=== PATIENT | male | born 1930 | race African-American/Black ===

== ENCOUNTER 2019-12-24 00:03 | Inpatient (IN) | payer MEDICARE ==
[~2019-12-24] VITALS: Ht 175.3 cm; Wt 73.5 kg
[2019-12-24 00:40] LABS: BASOPHILS # (AUTO) 0.1 K/uL (0.0-8.0); BASOPHILS % (AUTO) 1.4 % (0.0-2.0); EOSINOPHILS # (AUTO) 0.3 K/uL (0.0-0.7); EOSINOPHILS % (AUTO) 7.2 % (0.0-7.0); HEMATOCRIT 40.4 % (36.7-47.1); HEMOGLOBIN 13.8 g/dL (12.5-16.3); LYMPHOCYTES # (AUTO) 1.2 K/uL (20.0-40.0); LYMPHOCYTES % (AUTO) 25.7 % (20.5-51.5); MEAN CORPUSCULAR HEMOGLOBIN 33.7 uug (23.8-33.4); MEAN CORPUSCULAR HGB CONC 34 g/dL (32.5-36.3); MEAN CORPUSCULAR VOLUME 98.9 fL (73.0-96.2); MONOCYTES # (AUTO) 0.5 K/uL (2.0-10.0); MONOCYTES % (AUTO) 10.8 % (0.0-11.0); NEUTROPHILS # (AUTO) 2.6 K/uL (1.8-8.9); NEUTROPHILS % (AUTO) 54.9 % (38.5-71.5); PLATELET COUNT (AUTO) 198 K/uL (152-348); RED BLOOD CELL COUNT(AUTO) 4.09 MIL/uL (4.06-5.63); WHITE BLOOD COUNT (AUTO) 4.8 K/uL (3.6-10.2)
[2019-12-24 00:58] LABS: CARBON DIOXIDE 31 mmol/L (21-32); CHLORIDE 109 mmol/L (98-107); CREATININE 1.4 mg/dL (0.6-1.3); ETHANOL < 3 MG/DL (0-0); GLUCOSE 103 mg/dL (74-106); POTASSIUM 4.2 mmol/L (3.5-5.1); UREA NITROGEN, BLOOD 17 mg/dL (7-18)
[2019-12-24 01:04] LABS: ACETAMINOPHEN 6.1 ug/mL (10-30); ALANINE AMINOTRANSFERASE 24 U/L (16-63); ALKALINE PHOSPHATASE 49 U/L (50-136); ASPARTATE AMINOTRANSFERASE 15 U/L (15-37); BILIRUBIN,DIRECT 0.2 mg/dL (0.0-0.2); BILIRUBIN,TOTAL 1.1 mg/dL (0.2-1.0); TOTAL PROTEIN, SERUM 7.4 g/dL (6.4-8.2)
[2019-12-24 01:23] LABS: *BILIRUBIN,URIN NEGATIVE (NEGATIVE); *BLOOD, URINE NEGATIVE (NEGATIVE); *CLARITY,URINE CLEAR (CLEAR); *COLOR,URINE YELLOW (YELLOW); *KETONES,URINE NEGATIVE (NEGATIVE); *UROBILINOGEN,URINE 0.2 E.U./dl (NORMAL); LEUKOCYTE ESTERASE ,URINE NEGATIVE (NEGATIVE); NITRITE, URINE NEGATIVE (NEGATIVE); UGLUCOSE NEGATIVE (NEGATIVE)
--- NOTE | 2019-12-24 01:30 | NUR ---
Pt medically cleared by Dr. Cao.
[2019-12-24 01:41] LABS: *AMPHETAMINE, URINE NEGATIVE (NEGATIVE); *BARBITURATE, URINE NEGATIVE (NEGATIVE); *CANNABINOID, URINE NEGATIVE (NEGATIVE); *COCCAINE, URINE NEGATIVE (NEGATIVE); *OPIATE, URINE NEGATIVE (NEGATIVE); *PHENCYCLIDINE SCREEN,URINE NEGATIVE (NEGATIVE)
--- NOTE | 2019-12-24 01:47 | NUR ---
Called Heather Patterson RN for PET crisis psych eval.
--- NOTE | 2019-12-24 02:00 | NUR ---
Patient is resting comfortably in bed with eyes closed.
--- NOTE | 2019-12-24 04:00 | NUR ---
ROSA MARIA LISA AT BEDSIDE FOR EVAL.
[2019-12-24] MEDS ORDERED: MAGNESIUM HYDROXIDE 30 ML LIQUID UDC PO PRN (04:30)
[2019-12-24] MEDS ORDERED: MAG HYDROX/AL HYDROX/SIMETH 30 ML LIQUID UDC PO PRN (04:30)
[2019-12-24] MEDS ORDERED: BLOOD SUGAR DIAGNOSTIC 1 EACH STRIP VI ONE (04:30)
[2019-12-24] MEDS ORDERED: TEMAZEPAM 7.5 MG CAPSULE PO PRN (04:30)
--- NOTE | 2019-12-24 05:00 | NUR ---
GPS/NSG Admitting Note: Patient admitted from ER on a 5150 for Danger to others and Grave disability. Patient arrived to the unit awake, alert and oriented to name, time and place. 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 Psychiatrist and physician notified. Patient was cooperative with interview process, patient was oriented to his room, patient rights handbook provided, belongings logged and stored in the locker. Plan of care initiated. will monitor for safety.
[2019-12-24 05:02] VITALS: BP 174/80
[2019-12-24 11:13] VITALS: BP 147/77
[2019-12-24] MEDS: DIVALPROEX SPRINKLE 125 MG CAP.SPRINK PO SCH ×2 (12:27→16:35)
[2019-12-24] MEDS: QUETIAPINE FUMARATE 25 MG TABLET PO SCH ×2 (12:28→20:41)
[2019-12-24] MEDS: BRIMONIDINE 0.2% OPHT DROP 10 ML BOTTLE EACHEYE SCH (16:37)
[2019-12-24] MEDS ORDERED: DORZOLAMIDE HCL OP SCH (17:00)
[2019-12-24 17:38] VITALS: BP 125/73
[2019-12-24 20:31] VITALS: BP 148/73
[2019-12-24] MEDS: DORZOLAMIDE 2% OPHT DROP 10 ML BOTTLE LEFTEYE SCH (20:45)
--- NOTE | 2019-12-25 01:40 | NUR ---
RECEIVED PATIENT IN BED.HE ANSWERED SOME QUESTIONS WELL AND TO SOME HE GAVE MINIMAL DISCLOSURE. HE WAS MEDICATION COMPLIANT BUT SAID HE HAD NO EYE PROBLEM FOR WHICH HE HAS TO HAVE EYE DROPS. HE SAID THE VEHICLE ASSEMBLY INSPECTOR WHO TREATED HIM WILL BE FIRED BECAUSE SHE DOS NOT KNOW WHAT SHES DOING. DENIES AH/SI BUT IS EASILY IRRITABLE WHEN QUESTIONED. WILL CONTINUE TO MONITOR.
--- NOTE | 2019-12-25 06:46 | NUR ---
HE SLEPT FOR APPROX.08;00 HRS. TOOK HIS MEDS.
[2019-12-25 07:30] VITALS: BP 168/90
[2019-12-25] MEDS: BRIMONIDINE 0.2% OPHT DROP 10 ML BOTTLE EACHEYE SCH ×2 (09:00→17:00)
[2019-12-25] MEDS: DORZOLAMIDE 2% OPHT DROP 10 ML BOTTLE LEFTEYE SCH ×2 (09:00→20:43)
[2019-12-25] MEDS: DIVALPROEX SPRINKLE 125 MG CAP.SPRINK PO SCH ×3 (09:09→17:11)
[2019-12-25] MEDS: ASPIRIN 81 MG TAB.CHEW PO SCH (09:09)
[2019-12-25] MEDS: QUETIAPINE FUMARATE 25 MG TABLET PO SCH ×2 (09:09→20:43)
[2019-12-25] MEDS: AMLODIPINE 5 MG TABLET PO SCH (13:12)
[2019-12-25 16:00] VITALS: BP 159/70
[2019-12-25 20:40] VITALS: BP 105/51
--- NOTE | 2019-12-26 00:16 | NUR ---
RECEIVED PATIENT IN BED. WITHDRAWN WITH MINIMAL DISCLOSURE. HE WAS MEDICATION COMPLIANT DENIES AH/SI BUT COULD BE IRRITABLE WHEN QUESTIONED. WILL CONTINUE TO MONITOR.
--- NOTE | 2019-12-26 06:33 | NUR ---
SLEPT APPROX 07;30. REFUSED SHOWER SAYING HE WILL SEE THE DOCTOR FIRST AND IF HE AGREES TO DISCHARGE HIM, THEN HE WILL TAKE THE SHOWER.
[2019-12-26 07:30] VITALS: BP 127/75
[2019-12-26] MEDS: DORZOLAMIDE 2% OPHT DROP 10 ML BOTTLE LEFTEYE SCH ×2 (09:00→20:18)
[2019-12-26] MEDS: ASPIRIN 81 MG TAB.CHEW PO SCH (09:00)
[2019-12-26] MEDS: BRIMONIDINE 0.2% OPHT DROP 10 ML BOTTLE EACHEYE SCH ×2 (09:00→17:00)
[2019-12-26] MEDS: QUETIAPINE FUMARATE 25 MG TABLET PO SCH ×2 (09:13→20:14)
[2019-12-26] MEDS: DIVALPROEX SPRINKLE 125 MG CAP.SPRINK PO SCH ×3 (09:13→17:09)
[2019-12-26] MEDS: AMLODIPINE 5 MG TABLET PO SCH (09:13)
--- NOTE | 2019-12-26 10:35 | NUR ---
Social Work Family Contact: Talent Associate attempted to reach patient's daughter, Gayle Pepper ([phone]) to collect collateral information however unable to reach Left a voicemail for a call back.
[2019-12-26 15:45] VITALS: BP 149/79
[2019-12-26 20:36] VITALS: BP 130/64
[2019-12-27 07:50] VITALS: BP 112/50
[2019-12-27 08:21] LABS: ALANINE AMINOTRANSFERASE 29 U/L (16-63); ALKALINE PHOSPHATASE 53 U/L (50-136); ASPARTATE AMINOTRANSFERASE 18 U/L (15-37); BILIRUBIN,TOTAL 1.3 mg/dL (0.2-1.0); CARBON DIOXIDE 29 mmol/L (21-32); CHLORIDE 107 mmol/L (98-107); CREATININE 1.4 mg/dL (0.6-1.3); GLUCOSE 86 mg/dL (74-106); POTASSIUM 4.6 mmol/L (3.5-5.1); TOTAL PROTEIN, SERUM 7.2 g/dL (6.4-8.2); UREA NITROGEN, BLOOD 16 mg/dL (7-18)
[2019-12-27 08:26] LABS: THYROID STIMULATING HORMONE 2.791 mIU/mL (0.358-3.740)
[2019-12-27] MEDS: QUETIAPINE FUMARATE 25 MG TABLET PO SCH (08:27)
[2019-12-27] MEDS: ASPIRIN 81 MG TAB.CHEW PO SCH (08:27)
[2019-12-27] MEDS: DIVALPROEX SPRINKLE 125 MG CAP.SPRINK PO SCH ×3 (08:27→16:29)
[2019-12-27] MEDS: AMLODIPINE 5 MG TABLET PO SCH (08:28)
[2019-12-27] MEDS: DORZOLAMIDE 2% OPHT DROP 10 ML BOTTLE LEFTEYE SCH ×2 (08:29→20:01)
[2019-12-27] MEDS: BRIMONIDINE 0.2% OPHT DROP 10 ML BOTTLE EACHEYE SCH ×2 (08:29→16:29)
[2019-12-27 09:20] LABS: CHOLESTEROL 165 mg/dL (<200); HDL CHOLESTEROL 47 mg/dL (40-60); TRIGLYCERIDES 97 MG/DL (30-150)
--- NOTE | 2019-12-27 10:35 | NUR ---
Social Work Initial Discharge plan: Patient currently resides at [facility] Address: [address] [place] [address] . Patient will be returning to facility upon discharge. SW will continue to work with patient, family, and MD to ensure a safe and proper discharge plan.
--- NOTE | 2019-12-27 10:38 | NUR ---
Social Work Family Contact: Frame Stripper And Crusher attempted to reach patient's daughter again, Gayle Pepper ([phone]) to collect collateral information however unable to reach again. Left a voicemail for a call back.
--- NOTE | 2019-12-27 10:41 | NUR ---
Social Work/Firearms Report ([employer]): Ocularist completed and submitted a [employer] firearms report for 5250 grave disability certification. A copy of report has been placed in patient chart.
[2019-12-27] MEDS ORDERED: risperiDONE 0.5 MG TABLET PO SCH (12:30)
[2019-12-27] MEDS: risperiDONE 0.25 MG TABLET PO SCH ×2 (13:13→20:01)
[2019-12-27 16:00] VITALS: BP 124/71
[2019-12-27 20:22] VITALS: BP 145/66
[2019-12-28 07:30] VITALS: BP 141/57
[2019-12-28] MEDS: ASPIRIN 81 MG TAB.CHEW PO SCH (08:43)
[2019-12-28] MEDS: risperiDONE 0.25 MG TABLET PO SCH (08:43)
[2019-12-28] MEDS: DIVALPROEX SPRINKLE 125 MG CAP.SPRINK PO SCH ×3 (08:43→17:57)
[2019-12-28] MEDS: AMLODIPINE 5 MG TABLET PO SCH (08:43)
[2019-12-28] MEDS: BRIMONIDINE 0.2% OPHT DROP 10 ML BOTTLE EACHEYE SCH ×3 (08:44→17:57)
[2019-12-28] MEDS: DORZOLAMIDE 2% OPHT DROP 10 ML BOTTLE LEFTEYE SCH ×3 (08:44→20:19)
[2019-12-28] MEDS ORDERED: risperiDONE 0.25 MG TABLET PO SCH (17:00)
[2019-12-28] MEDS: BENZTROPINE MESYLATE 0.5 MG TABLET PO SCH (17:56)
[2019-12-28] MEDS: risperiDONE 0.5 MG TABLET PO SCH (17:57)
[2019-12-28 21:30] VITALS: BP 140/65
--- NOTE | 2019-12-29 01:25 | NUR ---
GPS: Pt.awake at this time,talking to himself. Restoril 7.5mg offered for insomnia but strongly refused. Risks vs benefits explained. Quiet environment provided to facilitate sleep. Will continue to monitor.
[2019-12-29] MEDS: LORAZEPAM 0.5 MG TABLET PO PRN ×2 (02:47→03:11)
--- NOTE | 2019-12-29 02:50 | NUR ---
GPS: Pt.is awake,confused,talking to self,and irritable when approached and when being re-directed by staff. Ativan 0.5mg PO offered but declined despite explanation of risks vs benefits x3. Quiet environment provided to facilitate sleep. Will continue to monitor.
--- NOTE | 2019-12-29 03:11 | NUR ---
GPS: Ativan 0.5mg PO was offered again to pt.for increased anxiety/agitation and taken. Will monitor effectiveness. Will continue to re-direct prn.
[2019-12-29 07:30] VITALS: BP 132/84
[2019-12-29] MEDS: ASPIRIN 81 MG TAB.CHEW PO SCH (09:57)
[2019-12-29] MEDS: DIVALPROEX SPRINKLE 125 MG CAP.SPRINK PO SCH ×3 (09:58→20:03)
[2019-12-29] MEDS: risperiDONE 0.5 MG TABLET PO SCH ×3 (09:58→17:15)
[2019-12-29] MEDS: BENZTROPINE MESYLATE 0.5 MG TABLET PO SCH ×2 (09:59→17:18)
[2019-12-29] MEDS: AMLODIPINE 5 MG TABLET PO SCH (09:59)
[2019-12-29] MEDS: BRIMONIDINE 0.2% OPHT DROP 10 ML BOTTLE EACHEYE SCH ×2 (10:01→17:16)
[2019-12-29] MEDS: DORZOLAMIDE 2% OPHT DROP 10 ML BOTTLE LEFTEYE SCH ×2 (10:01→20:04)
--- NOTE | 2019-12-29 13:49 | NUR ---
Social Work/Conservatorship: Rod Cup Filler spoke with [facility] Public Guardian's office Madina ([phone]) who stated that [facility] ([phone]) has filed for probate conservatorship for the patient and Madina was following up with patient's hospitalization.
[2019-12-29 16:46] VITALS: BP 128/75
--- NOTE | 2019-12-29 17:29 | NUR ---
Gps/Director Operations- Patient continued to paced around, difficulty redirecting patient , confused, prompted to take routine meds.Patient stated" give something to cut my wrist",!! patient was cursing.Constant redirections patient unable to find his room . Noted patient buckling standing by the Nurses station. Assisted to rogelio-chair, monitored safety .Yells for his needs .
[2019-12-29] MEDS: risperiDONE 1 MG TABLET PO SCH (20:04)
[2019-12-29 21:11] VITALS: BP 126/78
[2019-12-30 07:30] VITALS: BP 127/69
[2019-12-30 08:19] LABS: BASOPHILS # (AUTO) 0.1 K/uL (0.0-8.0); BASOPHILS % (AUTO) 0.9 % (0.0-2.0); EOSINOPHILS # (AUTO) 0.4 K/uL (0.0-0.7); EOSINOPHILS % (AUTO) 5.8 % (0.0-7.0); HEMATOCRIT 40.7 % (36.7-47.1); HEMOGLOBIN 13.8 g/dL (12.5-16.3); LYMPHOCYTES # (AUTO) 1.5 K/uL (20.0-40.0); LYMPHOCYTES % (AUTO) 21.5 % (20.5-51.5); MEAN CORPUSCULAR HEMOGLOBIN 33.6 uug (23.8-33.4); MEAN CORPUSCULAR HGB CONC 34 g/dL (32.5-36.3); MONOCYTES # (AUTO) 0.5 K/uL (2.0-10.0); NEUTROPHILS # (AUTO) 4.3 K/uL (1.8-8.9); NEUTROPHILS % (AUTO) 63.8 % (38.5-71.5); PLATELET COUNT (AUTO) 194 K/uL (152-348); RED BLOOD CELL COUNT(AUTO) 4.11 MIL/uL (4.06-5.63)
[2019-12-30 08:20] LABS: WHITE BLOOD COUNT (AUTO) 6.8 K/uL (3.6-10.2)
[2019-12-30] MEDS: risperiDONE 0.5 MG TABLET PO SCH ×4 (08:59→17:03)
[2019-12-30] MEDS: AMLODIPINE 5 MG TABLET PO SCH (08:59)
[2019-12-30] MEDS: BRIMONIDINE 0.2% OPHT DROP 10 ML BOTTLE EACHEYE SCH ×3 (08:59→17:04)
[2019-12-30] MEDS: DIVALPROEX SPRINKLE 125 MG CAP.SPRINK PO SCH ×2 (08:59→21:00)
[2019-12-30] MEDS: ASPIRIN 81 MG TAB.CHEW PO SCH (08:59)
[2019-12-30] MEDS: BENZTROPINE MESYLATE 0.5 MG TABLET PO SCH ×2 (08:59→17:04)
[2019-12-30] MEDS: DORZOLAMIDE 2% OPHT DROP 10 ML BOTTLE LEFTEYE SCH ×2 (09:00→21:12)
--- NOTE | 2019-12-30 13:31 | NUR ---
Gps/Lab Rn- Refusing to take risperdol , claimed he has medications stucked in his throat, no coughing noted, fluids offered, apple sauce given, still refused to take routine 1300 med.
[2019-12-30 15:16] VITALS: BP 127/68
--- NOTE | 2019-12-30 15:44 | NUR ---
Gps/Reports Analyst- Remains in bed, head covered with blanket , claimed he is cold and does not want to be bothered .
--- NOTE | 2019-12-30 17:30 | NUR ---
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 Reviewed medications with patient, and rationale, claimed he does not want to hear about it.
--- NOTE | 2019-12-30 20:30 | NUR ---
PATIENT ALERT, HAS NO COMPLAIN OF PAIN, IN BED RESTING WHEN OFFER HIS NIGHT MEDICATIONS PATIENT REFUSED, STATED HE WAS CHOKING ON THOSE PILLS, BUT WHEN OFFER TO CRUSH THEN AND WILL PUT IN PUDDING OR APPLE SAUCE STILL REFUSED PO MEDICATIONS, TOOK ONLY HIS EYE GTSS, CONT TO MONITOR.
[2019-12-30 20:35] VITALS: BP 128/62
[2019-12-30] MEDS: risperiDONE 1 MG TABLET PO SCH (21:00)
[2019-12-31 07:30] VITALS: BP 138/74
[2019-12-31] MEDS: DIVALPROEX SPRINKLE 125 MG CAP.SPRINK PO SCH ×2 (09:00→21:07)
[2019-12-31] MEDS: risperiDONE 0.5 MG TABLET PO SCH ×3 (09:00→17:00)
[2019-12-31] MEDS: BRIMONIDINE 0.2% OPHT DROP 10 ML BOTTLE EACHEYE SCH ×2 (09:00→17:00)
[2019-12-31] MEDS: ASPIRIN 81 MG TAB.CHEW PO SCH (09:00)
[2019-12-31] MEDS: AMLODIPINE 5 MG TABLET PO SCH (09:00)
[2019-12-31] MEDS: BENZTROPINE MESYLATE 0.5 MG TABLET PO SCH ×2 (09:00→17:00)
[2019-12-31] MEDS: DORZOLAMIDE 2% OPHT DROP 10 ML BOTTLE LEFTEYE SCH ×2 (09:00→21:00)
--- NOTE | 2019-12-31 09:33 | NUR ---
Gps/Certified Teacher Assistant- Patient refusing routine mediciations as well as his eye drops, claimed they are not the right mediciations, reviewed with patient, stated" i needed to be at [facility] not at this crappy place" Informed he is at [facility]. and we are here to take care of him. Reviewed with patient reason why he is here, patient started to get argumentative, angry, labile , cursing. Encouraged to continue to verbalized feelings and needs, safety emphasized.
--- NOTE | 2019-12-31 10:15 | NUR ---
Gps?office machines sales representative- Discharged planning in progress, to provide transportation . Compliant with routine mediciations, reviewed safety, skin care , dieta, diabetic educ., emphasized needed to follow up with his Primary Mediical Doctor as well Psychiatrist as recommended. , patient verbalized understanding
--- NOTE | 2019-12-31 10:33 | NUR ---
PT APPEARS TO BE ESCALATING IN BEHAVIOR AT THIS TIME. PACING UNIT. CURSING LOUDLY "FUCK ALL YA'LL! "I'M GONNA KICK ALL YA'LLS ASSES" THREATENING TO CALL 911 AT THIS TIME. 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 WILL CONTINUE TO REDIRECT.
[2019-12-31] MEDS ORDERED: LORAZEPAM 2 MG/1 ML VIAL IM ONE (10:45)
[2019-12-31] MEDS ORDERED: OLANZAPINE 10 MG VIAL IM ONE (10:45)
--- NOTE | 2019-12-31 10:50 | NUR ---
PT CONTINUES TO BE HIGHLY AGITATED, SCREAMING AT STAFF TO CALL THE [facility] BECAUSE "THEY'LL KNOW EVERYTHING ABOUT ME." ESCALATING IN BEHAVIOR, UNREDIRECTABLE. CONTINUES TO BE VERBALLY THREATENING STAFF. CALLED DR. MCCOLLUM WITH ORDERS FOR IM MEDICATIONS. NOTED AND CARRIED OUT.
--- NOTE | 2019-12-31 12:00 | NUR ---
Gps/Rubber Goods Inspector- Pacing around , looking for exit, claimed he wants to go to second floor back to his room, informed and reviewed with patient trying to reorient he is at [facility]. M[facility] , speech confused incoherent irritability noted.
--- NOTE | 2019-12-31 14:17 | NUR ---
Gps/Boiler Washer- In bed quiet , monitoring needs , remains confused, ,incoherent speech.
[2019-12-31 16:00] VITALS: BP 149/76
--- NOTE | 2019-12-31 17:10 | NUR ---
Gps/Vacuum Drier Tender- Found patient by Rec therapy sitting at the foot of the bed, on the floor, in no distress, ambulated to rogelio-chair, kept infront of the Nurses station. Patient confused, disoriented, noted hallucination trying to pick u[p something .Kept up on the rogelio-chair by the Nurses station , sfety reviewed emphasized. Patient refusing pm meds.
[2019-12-31] MEDS: risperiDONE 1 MG TABLET PO SCH (21:07)
[2019-12-31 21:17] VITALS: BP 120/68
--- NOTE | 2019-12-31 22:00 | NUR ---
received to care, up in rogelio chair, angry, hostile, talking to self, yelling intermittently, difficult to redirect. initially refused his medications, but did eventually take them, except for his eye drops. as of 2199, he appears to be asleep. no distress noted. will continue to monitor closely.
--- NOTE | 2020-01-01 06:00 | NUR ---
slept 6.75 hours, total. continues to sleep. no distress noted.
[2020-01-01 07:30] VITALS: BP 142/79
[2020-01-01] MEDS: BRIMONIDINE 0.2% OPHT DROP 10 ML BOTTLE EACHEYE SCH ×2 (09:00→17:00)
[2020-01-01] MEDS: DORZOLAMIDE 2% OPHT DROP 10 ML BOTTLE LEFTEYE SCH ×2 (09:00→21:00)
[2020-01-01] MEDS: BENZTROPINE MESYLATE 0.5 MG TABLET PO SCH ×2 (09:16→18:16)
[2020-01-01] MEDS: risperiDONE 0.5 MG TABLET PO SCH ×3 (09:16→18:16)
[2020-01-01] MEDS: AMLODIPINE 5 MG TABLET PO SCH (09:16)
[2020-01-01] MEDS: ASPIRIN 81 MG TAB.CHEW PO SCH (09:16)
[2020-01-01] MEDS: DIVALPROEX SPRINKLE 125 MG CAP.SPRINK PO SCH ×3 (09:17→21:21)
[2020-01-01 16:00] VITALS: BP 112/74
--- NOTE | 2020-01-01 17:45 | NUR ---
Gps/Maintainer Operator- Had been quiet most of the day, stayed in bed this pm, bed alarm on, safety reviewed and emphasized. refusing his eye gtts. routine meds, was administered w/ hi food., assisted meal this pm
[2020-01-01 20:00] VITALS: BP 116/69
[2020-01-01] MEDS: risperiDONE 1 MG TABLET PO SCH ×2 (21:00→21:21)
--- NOTE | 2020-01-01 22:00 | NUR ---
received to care, up in rogelio chair, sleeping intermittently. guarded and suspicious upon approach. refused all medications, but was compliant with nursing care. as orf 2200, he appears to be asleep. no distress noted. will continue to monitor closely.
--- NOTE | 2020-01-02 06:00 | NUR ---
slept 6.0 hours, total. continues to sleep. no distress noted.
--- NOTE | 2020-01-02 06:32 | NUR ---
refused am lab draw.
[2020-01-02 07:30] VITALS: BP_SYST 101; BP_SYST 116; BP_DIAS 51; BP_DIAS 70
[2020-01-02] MEDS: BRIMONIDINE 0.2% OPHT DROP 10 ML BOTTLE EACHEYE SCH ×2 (09:00→16:35)
[2020-01-02] MEDS: risperiDONE 0.5 MG TABLET PO SCH ×3 (09:00→16:34)
[2020-01-02] MEDS: ASPIRIN 81 MG TAB.CHEW PO SCH (09:00)
[2020-01-02] MEDS: AMLODIPINE 5 MG TABLET PO SCH (09:00)
[2020-01-02] MEDS: BENZTROPINE MESYLATE 0.5 MG TABLET PO SCH ×2 (09:00→16:34)
[2020-01-02] MEDS: DIVALPROEX SPRINKLE 125 MG CAP.SPRINK PO SCH ×2 (09:00→21:00)
[2020-01-02] MEDS: DORZOLAMIDE 2% OPHT DROP 10 ML BOTTLE LEFTEYE SCH ×2 (09:00→20:47)
[2020-01-02 15:25] VITALS: BP 94/52
[2020-01-02 20:00] VITALS: BP 115/65
[2020-01-02] MEDS: risperiDONE 1 MG TABLET PO SCH ×2 (20:57→21:00)
--- NOTE | 2020-01-02 22:00 | NUR ---
received to care, lying in bed, angry, and hostile, upon approach. refused all of his medications, including his eye drops. assisted with fluids, and a snack. as of 2199, he appears to be asleep. no distress noted. will continue to monitor closely.
--- NOTE | 2020-01-03 06:00 | NUR ---
slept 6.0 hours, total. continues to sleep. no distress noted.
[2020-01-03] MEDS: ASPIRIN 81 MG TAB.CHEW PO SCH (09:00)
[2020-01-03] MEDS: BENZTROPINE MESYLATE 0.5 MG TABLET PO SCH ×2 (09:00→16:23)
[2020-01-03] MEDS: AMLODIPINE 5 MG TABLET PO SCH (09:00)
[2020-01-03] MEDS: DIVALPROEX SPRINKLE 125 MG CAP.SPRINK PO SCH ×2 (09:00→20:46)
[2020-01-03] MEDS: BRIMONIDINE 0.2% OPHT DROP 10 ML BOTTLE EACHEYE SCH ×2 (09:00→16:23)
[2020-01-03] MEDS: DORZOLAMIDE 2% OPHT DROP 10 ML BOTTLE LEFTEYE SCH ×2 (09:00→20:46)
[2020-01-03] MEDS: risperiDONE 0.5 MG TABLET PO SCH ×3 (09:00→16:23)
[2020-01-03 20:01] VITALS: BP 120/58
[2020-01-03] MEDS: risperiDONE 1 MG TABLET PO SCH (20:46)
--- NOTE | 2020-01-03 22:00 | NUR ---
received to care, lying in bed, sleeping intermittently. guarded, verbally hostile, and suspicious upon approach. observed to be talking to self. refused all medications, but was compliant with nursing care. as of 2199, he appears to be asleep. no distress noted. will continue to monitor closely.
[2020-01-04] MEDS: BRIMONIDINE 0.2% OPHT DROP 10 ML BOTTLE EACHEYE SCH ×2 (09:00→17:00)
[2020-01-04] MEDS: risperiDONE 0.5 MG TABLET PO SCH ×3 (09:00→17:00)
[2020-01-04] MEDS: DORZOLAMIDE 2% OPHT DROP 10 ML BOTTLE LEFTEYE SCH ×2 (09:00→20:11)
[2020-01-04] MEDS: BENZTROPINE MESYLATE 0.5 MG TABLET PO SCH ×2 (09:00→17:00)
[2020-01-04] MEDS: AMLODIPINE 5 MG TABLET PO SCH (09:00)
[2020-01-04] MEDS: DIVALPROEX SPRINKLE 125 MG CAP.SPRINK PO SCH ×2 (09:00→20:11)
[2020-01-04] MEDS: ASPIRIN 81 MG TAB.CHEW PO SCH (09:00)
--- NOTE | 2020-01-04 13:56 | NUR ---
Social Work/Individual Counseling: SW met with patient and provided brief supportive counseling and assess patient's level of insight into his presenting problems. Patient became increasingly agitated, and presented with paranoid thoughts. Patient was unable to accept counseling offered by this older adult social work specialist, as patient has fixed delusions that the "[facility] will come [facility] and take me" and "I need eye surgery". SW helped redirect patient to be calm and will remain available to the patient.
[2020-01-04 16:00] VITALS: BP 121/73
[2020-01-04] MEDS: risperiDONE 1 MG TABLET PO SCH (20:11)
[2020-01-05 07:30] VITALS: BP 118/65
[2020-01-05] MEDS: ASPIRIN 81 MG TAB.CHEW PO SCH (08:20)
[2020-01-05] MEDS: risperiDONE 0.5 MG TABLET PO SCH ×3 (08:21→17:00)
[2020-01-05] MEDS: AMLODIPINE 5 MG TABLET PO SCH (08:21)
[2020-01-05] MEDS: DIVALPROEX SPRINKLE 125 MG CAP.SPRINK PO SCH ×2 (08:21→20:13)
[2020-01-05] MEDS: BENZTROPINE MESYLATE 0.5 MG TABLET PO SCH ×2 (08:21→17:00)
[2020-01-05] MEDS: DORZOLAMIDE 2% OPHT DROP 10 ML BOTTLE LEFTEYE SCH ×2 (08:22→20:12)
[2020-01-05] MEDS: BRIMONIDINE 0.2% OPHT DROP 10 ML BOTTLE EACHEYE SCH ×2 (08:22→17:00)
--- NOTE | 2020-01-05 15:19 | NUR ---
Patient has been refusing PO medications. He states that "nothing's wrong with me. I don't doubt your education but I'm not ill." Patient is provided with education about taking all medication and risks and benefits of the medication, but he continues to refuse. Patient has no insight into his mental illness or reason for admission. He is dismissive with this blurb writer during education and refusing to participate with redirection and reality orientation. Patient is anxious, agitated, and demanding of staff to let him be released. Patient instructed on how to communicate needs to staff and educated about impulse control.
[2020-01-05 16:00] VITALS: BP 141/69
[2020-01-05] MEDS: risperiDONE 1 MG TABLET PO SCH (20:13)
[2020-01-06 07:30] VITALS: BP 134/68
[2020-01-06] MEDS: BRIMONIDINE 0.2% OPHT DROP 10 ML BOTTLE EACHEYE SCH ×2 (08:28→17:00)
[2020-01-06] MEDS: DORZOLAMIDE 2% OPHT DROP 10 ML BOTTLE LEFTEYE SCH ×2 (08:28→21:00)
[2020-01-06] MEDS: DIVALPROEX SPRINKLE 125 MG CAP.SPRINK PO SCH ×2 (08:29→21:00)
[2020-01-06] MEDS: ASPIRIN 81 MG TAB.CHEW PO SCH (08:29)
[2020-01-06] MEDS: BENZTROPINE MESYLATE 0.5 MG TABLET PO SCH ×2 (08:29→17:00)
[2020-01-06] MEDS: AMLODIPINE 5 MG TABLET PO SCH (08:29)
[2020-01-06] MEDS: risperiDONE 0.5 MG TABLET PO SCH ×3 (08:29→17:00)
[2020-01-06 16:00] VITALS: BP 115/60
[2020-01-06] MEDS: risperiDONE 1 MG TABLET PO SCH (21:00)
[2020-01-07 07:30] VITALS: BP 147/63
[2020-01-07] MEDS: BENZTROPINE MESYLATE 0.5 MG TABLET PO SCH ×2 (09:00→17:00)
[2020-01-07] MEDS: DORZOLAMIDE 2% OPHT DROP 10 ML BOTTLE LEFTEYE SCH ×2 (09:00→21:00)
[2020-01-07] MEDS: BRIMONIDINE 0.2% OPHT DROP 10 ML BOTTLE EACHEYE SCH ×2 (09:00→17:00)
[2020-01-07] MEDS: DIVALPROEX SPRINKLE 125 MG CAP.SPRINK PO SCH ×2 (09:00→21:00)
[2020-01-07] MEDS: risperiDONE 0.5 MG TABLET PO SCH ×3 (09:00→17:00)
[2020-01-07] MEDS: ASPIRIN 81 MG TAB.CHEW PO SCH (09:00)
[2020-01-07] MEDS: AMLODIPINE 5 MG TABLET PO SCH (09:00)
[2020-01-07 16:00] VITALS: BP 117/49
[2020-01-07 20:05] VITALS: BP 132/56
[2020-01-07] MEDS: risperiDONE 1 MG TABLET PO SCH (21:00)
--- NOTE | 2020-01-07 22:00 | NUR ---
PATIENT REFUSED ALL HIS QHS MEDICATIONS. RISK AND BENEFITS OF THE IMPORTANCE TO COMPLY WITH MEDICATION REGIMENT WERE EXPLAINED TO PATIENT; HOWEVER, HE CONTINUE REFUSING MEDS. HE CONTINUE WITHDRAWN, ISOLATIVE, POOR HISTORIAN. WILL CONTINUE TO ENCOURAGE PT TO VERBALIZED FEELINGS.
[2020-01-08 07:30] VITALS: BP 135/72
[2020-01-08] MEDS: BENZTROPINE MESYLATE 0.5 MG TABLET PO SCH ×2 (09:00→17:00)
[2020-01-08] MEDS: DIVALPROEX SPRINKLE 125 MG CAP.SPRINK PO SCH ×2 (09:00→20:01)
[2020-01-08] MEDS: risperiDONE 0.5 MG TABLET PO SCH ×3 (09:00→17:00)
[2020-01-08] MEDS: AMLODIPINE 5 MG TABLET PO SCH (09:00)
[2020-01-08] MEDS: DORZOLAMIDE 2% OPHT DROP 10 ML BOTTLE LEFTEYE SCH ×2 (09:00→20:01)
[2020-01-08] MEDS: BRIMONIDINE 0.2% OPHT DROP 10 ML BOTTLE EACHEYE SCH ×2 (09:00→17:00)
[2020-01-08] MEDS: ASPIRIN 81 MG TAB.CHEW PO SCH (09:00)
[2020-01-08 20:00] VITALS: BP 110/60
[2020-01-08] MEDS: risperiDONE 1 MG TABLET PO SCH (20:01)
[2020-01-09 07:30] VITALS: BP 130/68
[2020-01-09] MEDS: BRIMONIDINE 0.2% OPHT DROP 10 ML BOTTLE EACHEYE SCH ×2 (08:31→17:00)
[2020-01-09] MEDS: BENZTROPINE MESYLATE 0.5 MG TABLET PO SCH ×2 (08:32→17:00)
[2020-01-09] MEDS: AMLODIPINE 5 MG TABLET PO SCH (08:32)
[2020-01-09] MEDS: DIVALPROEX SPRINKLE 125 MG CAP.SPRINK PO SCH ×2 (08:32→20:05)
[2020-01-09] MEDS: ASPIRIN 81 MG TAB.CHEW PO SCH (08:32)
[2020-01-09] MEDS: DORZOLAMIDE 2% OPHT DROP 10 ML BOTTLE LEFTEYE SCH ×2 (08:32→20:05)
[2020-01-09] MEDS: risperiDONE 0.5 MG TABLET PO SCH (08:32)
--- NOTE | 2020-01-09 09:13 | NUR ---
Patient refusing AM medication. Patient states that he believes he doesn't need his medication because there is "nothing wrong with me". Patient provided with education about importance of taking medication as prescribed and risks and benefits of not taking medication, but he is refusing to participate in education and continues to maintain his belief that he does not need the medication. Patient has poor insight into his illness and poor judgement. Patient provided with reality orientation, but education is ineffective at this time.
[2020-01-09 15:39] VITALS: BP 119/61
[2020-01-09 20:00] VITALS: BP 146/62
[2020-01-09] MEDS: risperiDONE 1 MG TABLET PO SCH (20:05)
[2020-01-09] MEDS ORDERED: risperiDONE 0.5 MG TABLET PO SCH (21:00)
--- NOTE | 2020-01-10 06:41 | NUR ---
GPS: Pt.refused blood drawing ordered this a.m. despite explanation of importance. Endorsed to incoming shift.
[2020-01-10 07:47] VITALS: BP 158/57
[2020-01-10] MEDS: ASPIRIN 81 MG TAB.CHEW PO SCH (08:39)
[2020-01-10] MEDS: BRIMONIDINE 0.2% OPHT DROP 10 ML BOTTLE EACHEYE SCH ×2 (08:39→15:51)
[2020-01-10] MEDS: BENZTROPINE MESYLATE 0.5 MG TABLET PO SCH ×2 (08:39→17:00)
[2020-01-10] MEDS: DORZOLAMIDE 2% OPHT DROP 10 ML BOTTLE LEFTEYE SCH ×2 (08:39→20:15)
[2020-01-10] MEDS: AMLODIPINE 5 MG TABLET PO SCH (08:40)
--- NOTE | 2020-01-10 08:40 | NUR ---
Patient refused all am medications this morning. Education given to patient on the importance of medication compliance. Patient agitated and irritable and difficult to redirect. Continuing to monitor for safety.
--- NOTE | 2020-01-10 12:09 | NUR ---
Social Work/Individual Counseling: SW met with patient to provide brief supportive counseling and assess patient's level of insight into his presenting problems. Patient continues to become easily agitated and increasingly delusional. Patient repeatedly stating "Why am I here, why are you keeping me here". Patient presenting with aggressive body language, leaning in and widely opening his eyes. SW attempted to calm the patient but unsuccessful. SW will continue to meet with patient and remain available.
[2020-01-10 15:49] VITALS: BP 132/69
[2020-01-10] MEDS: risperiDONE 1 MG TABLET PO SCH (17:00)
[2020-01-10] MEDS: OLANZAPINE 10 MG VIAL IM PRN (17:32)
--- NOTE | 2020-01-10 17:37 | NUR ---
Patient continued to refuse oral medications. Per order patient received 2.5 mg of Zyprexa IM. Tolerated well. Continuing to encourage patient to take oral medications. Monitoring for safety.
[2020-01-10] MEDS: DIVALPROEX SPRINKLE 125 MG CAP.SPRINK PO SCH (20:15)
[2020-01-10 20:37] VITALS: BP 136/63
[2020-01-11 07:30] VITALS: BP 125/64
[2020-01-11] MEDS: ASPIRIN 81 MG TAB.CHEW PO SCH (09:00)
[2020-01-11] MEDS: risperiDONE 0.5 MG TABLET PO SCH (09:00)
[2020-01-11] MEDS: DORZOLAMIDE 2% OPHT DROP 10 ML BOTTLE LEFTEYE SCH ×2 (09:00→21:00)
[2020-01-11] MEDS: BRIMONIDINE 0.2% OPHT DROP 10 ML BOTTLE EACHEYE SCH ×2 (09:00→17:00)
[2020-01-11] MEDS: BENZTROPINE MESYLATE 0.5 MG TABLET PO SCH ×2 (09:00→17:44)
[2020-01-11] MEDS: AMLODIPINE 5 MG TABLET PO SCH (09:00)
[2020-01-11] MEDS: OLANZAPINE 10 MG VIAL IM PRN (09:36)
--- NOTE | 2020-01-11 09:49 | NUR ---
Received patient asleep in his assigned bed. Bed is in low and locked position. Patient is alert and oriented to person and place only. Patient has poor insight into his mental health and the reason for hospitalization. Patient becomes easily angry, agitated, and irritable with staff. Upon assessment, patient states that he does not need his morning medication, that nothing is wrong with him, and that [facility]. Patient is refusing AM medication. Patient educated about importance of medication adherence, but continues to refuse. "There's nothing wrong with me. I don't take any medications." PRN Zyprexa 2.5 mg IM administered per MD order, patient is Riesed. Patient educated about medication and reason for Riese, but refusing to participate in education. Im given without adverse reaction. Patient provided with water and instructed to notify staff of any adverse reaction. Patient is able to independently perform self care and ADL's. Will continue to monitor.
[2020-01-11] MEDS: ACETAMINOPHEN 325 MG TABLET PO PRN (13:34)
[2020-01-11 16:00] VITALS: BP 100/63
[2020-01-11] MEDS: risperiDONE 1 MG TABLET PO SCH (17:44)
[2020-01-11 20:22] VITALS: BP 103/52
[2020-01-11] MEDS: DIVALPROEX SPRINKLE 125 MG CAP.SPRINK PO SCH (21:00)
--- NOTE | 2020-01-11 22:00 | NUR ---
received to care, lying in bed, appearing distracted by internal stimuli, angry, and hostile, upon approach. refused all of his medications, including his eye drops. stated that he is being held against his will, and that the [facility] is [facility]. assisted with fluids, and a snack. as of 2199, he appears to be asleep. no distress noted. will continue to monitor closely.
[2020-01-12 07:30] VITALS: BP 150/48
[2020-01-12 07:48] LABS: BASOPHILS # (AUTO) 0.1 K/uL (0.0-8.0); BASOPHILS % (AUTO) 1.4 % (0.0-2.0); EOSINOPHILS # (AUTO) 0.3 K/uL (0.0-0.7); EOSINOPHILS % (AUTO) 5.9 % (0.0-7.0); HEMATOCRIT 40.1 % (36.7-47.1); HEMOGLOBIN 13.6 g/dL (12.5-16.3); LYMPHOCYTES # (AUTO) 1.9 K/uL (20.0-40.0); LYMPHOCYTES % (AUTO) 34.4 % (20.5-51.5); MEAN CORPUSCULAR HEMOGLOBIN 33.4 uug (23.8-33.4); MEAN CORPUSCULAR HGB CONC 34 g/dL (32.5-36.3); MEAN CORPUSCULAR VOLUME 98.4 fL (73.0-96.2); MONOCYTES # (AUTO) 0.5 K/uL (2.0-10.0); MONOCYTES % (AUTO) 9.7 % (0.0-11.0); NEUTROPHILS # (AUTO) 2.7 K/uL (1.8-8.9); NEUTROPHILS % (AUTO) 48.6 % (38.5-71.5); PLATELET COUNT (AUTO) 171 K/uL (152-348); RED BLOOD CELL COUNT(AUTO) 4.08 MIL/uL (4.06-5.63); WHITE BLOOD COUNT (AUTO) 5.5 K/uL (3.6-10.2)
[2020-01-12 08:02] LABS: ALANINE AMINOTRANSFERASE 17 U/L (16-63); ALKALINE PHOSPHATASE 56 U/L (50-136); ASPARTATE AMINOTRANSFERASE 18 U/L (15-37); BILIRUBIN,TOTAL 1.1 mg/dL (0.2-1.0); CARBON DIOXIDE 29 mmol/L (21-32); CHLORIDE 110 mmol/L (98-107); CREATININE 1.4 mg/dL (0.6-1.3); GLUCOSE 83 mg/dL (74-106); MAGNESIUM 2.2 mg/dL (1.8-2.4); PHOSPHOROUS 3.3 mg/dL (2.5-4.9); POTASSIUM 4.3 mmol/L (3.5-5.1); TOTAL PROTEIN, SERUM 7.3 g/dL (6.4-8.2); UREA NITROGEN, BLOOD 19 mg/dL (7-18)
[2020-01-12] MEDS: risperiDONE 0.5 MG TABLET PO SCH (08:47)
[2020-01-12] MEDS: ASPIRIN 81 MG TAB.CHEW PO SCH (08:47)
[2020-01-12] MEDS: AMLODIPINE 5 MG TABLET PO SCH (08:47)
[2020-01-12] MEDS: BENZTROPINE MESYLATE 0.5 MG TABLET PO SCH ×2 (08:47→17:03)
[2020-01-12] MEDS: BRIMONIDINE 0.2% OPHT DROP 10 ML BOTTLE EACHEYE SCH ×2 (08:48→17:01)
[2020-01-12] MEDS: DORZOLAMIDE 2% OPHT DROP 10 ML BOTTLE LEFTEYE SCH ×2 (08:48→21:00)
[2020-01-12 16:00] VITALS: BP 136/62
--- NOTE | 2020-01-12 16:30 | NUR ---
Gps/Rn L And D- Patient was able to nap this pm for about 1 hour .
[2020-01-12] MEDS: risperiDONE 1 MG TABLET PO SCH (17:00)
--- NOTE | 2020-01-12 17:46 | NUR ---
Gps/Sorting And Folding Supervisor- Patient had been cooperative, and compliant with his pm medications, able to administer own eye drops with supervision.
[2020-01-12 20:00] VITALS: BP 129/58
[2020-01-12] MEDS: DIVALPROEX SPRINKLE 125 MG CAP.SPRINK PO SCH (21:00)
--- NOTE | 2020-01-12 22:00 | NUR ---
received to care, lying in bed, appearing distracted by internal stimuli, angry, and hostile, upon approach. refused all of his medications, including his eye drops. assisted with fluids, and a snack. as of 2199, he appears to be asleep. no distress noted. will continue to monitor closely.
[2020-01-13 07:30] VITALS: BP 136/59
[2020-01-13] MEDS: AMLODIPINE 5 MG TABLET PO SCH (08:52)
[2020-01-13] MEDS: ASPIRIN 81 MG TAB.CHEW PO SCH (08:52)
[2020-01-13] MEDS: BENZTROPINE MESYLATE 0.5 MG TABLET PO SCH ×2 (08:52→18:03)
[2020-01-13] MEDS: BRIMONIDINE 0.2% OPHT DROP 10 ML BOTTLE EACHEYE SCH ×2 (08:53→18:03)
[2020-01-13] MEDS: DORZOLAMIDE 2% OPHT DROP 10 ML BOTTLE LEFTEYE SCH ×2 (08:53→18:03)
[2020-01-13] MEDS ORDERED: risperiDONE 1 MG TABLET PO SCH (09:00)
[2020-01-13] MEDS ORDERED: risperiDONE 0.5 MG TABLET PO SCH (09:00)
[2020-01-13] MEDS: ACETAMINOPHEN 325 MG TABLET PO PRN (10:49)
[2020-01-13] MEDS ORDERED: OLANZAPINE 10 MG VIAL IM PRN (13:00)
[2020-01-13] MEDS: risperiDONE 1 MG TABLET PO SCH ×2 (15:09→21:00)
[2020-01-13 16:00] VITALS: BP 130/58
[2020-01-13] MEDS: DIVALPROEX SPRINKLE 125 MG CAP.SPRINK PO SCH (21:00)
[2020-01-13 21:02] VITALS: BP 121/60
--- NOTE | 2020-01-14 05:16 | NUR ---
Patient first observed lying in bed seemingly asleep. Bed in low and locked position. Patient observed to be alert and oriented to person only. Patient exhibited poor insight into his mental health condition, denies any mental health issues and threatened to raeann everyone of the staff members, became angry, agitated, and irritable when HS PO medication was offered, stating that nothing is wrong with him, and that [facility]. Patient refused HS medication, Zyprexa 2.5 mg IM administered per MD order, per Riesed status. Patient educated about medication and reason for Riese, along with security present however refused to participate in education. IM administered no adverse reaction apparent. Patient requires nursing interventions for self care and ADL's. Will continue to monitor as well as provide a safe and therapeutic environment.
[2020-01-14 08:30] VITALS: BP 157/65
[2020-01-14] MEDS: BENZTROPINE MESYLATE 0.5 MG TABLET PO SCH ×2 (08:43→17:12)
[2020-01-14] MEDS: ASPIRIN 81 MG TAB.CHEW PO SCH (08:44)
[2020-01-14] MEDS: AMLODIPINE 5 MG TABLET PO SCH (08:44)
[2020-01-14] MEDS: BRIMONIDINE 0.2% OPHT DROP 10 ML BOTTLE EACHEYE SCH ×2 (08:45→17:12)
[2020-01-14] MEDS: risperiDONE 1 MG TABLET PO SCH ×3 (08:45→20:58)
[2020-01-14] MEDS: DORZOLAMIDE 2% OPHT DROP 10 ML BOTTLE LEFTEYE SCH ×2 (08:45→20:57)
[2020-01-14 15:39] VITALS: BP 143/70
[2020-01-14] MEDS: DIVALPROEX SPRINKLE 125 MG CAP.SPRINK PO SCH (20:58)
--- NOTE | 2020-01-14 22:00 | NUR ---
received to care, lying in bed, pleasant, bur suspicious, upon approach. initially refused all of his medications, including his eye drops, but did take his psychotropic medications, with some encouragement. he was also assisted with fluids, and a snack. as of 2199, he appears to be asleep. no distress noted. will continue to monitor closely.
--- NOTE | 2020-01-15 06:00 | NUR ---
slept 7.5 hours total. continues to sleep. no distress noted.
[2020-01-15 07:30] VITALS: BP 119/65
[2020-01-15] MEDS: risperiDONE 1 MG TABLET PO SCH ×3 (08:23→20:38)
[2020-01-15] MEDS: BENZTROPINE MESYLATE 0.5 MG TABLET PO SCH ×2 (08:23→17:00)
[2020-01-15] MEDS: ASPIRIN 81 MG TAB.CHEW PO SCH (08:23)
[2020-01-15] MEDS: BRIMONIDINE 0.2% OPHT DROP 10 ML BOTTLE EACHEYE SCH ×2 (08:24→16:59)
[2020-01-15] MEDS: DORZOLAMIDE 2% OPHT DROP 10 ML BOTTLE LEFTEYE SCH ×2 (08:24→20:46)
[2020-01-15] MEDS: AMLODIPINE 5 MG TABLET PO SCH (08:24)
[2020-01-15] MEDS: ACETAMINOPHEN 325 MG TABLET PO PRN (10:21)
[2020-01-15 17:04] VITALS: BP 143/65
[2020-01-15 20:00] VITALS: BP 137/63
[2020-01-15] MEDS: DIVALPROEX SPRINKLE 125 MG CAP.SPRINK PO SCH (20:38)
--- NOTE | 2020-01-15 22:00 | NUR ---
received to care, lying in bed, pleasant, but guarded, upon approach. compliant with all medications and staff direction. bedtime snack given. as of 2200, he appears to be asleep. no distress noted. will continue to monitor closely.
--- NOTE | 2020-01-16 06:00 | NUR ---
slept 6.5 hours, total. continues to sleep. no distress noted.
[2020-01-16 07:30] VITALS: BP 120/64
[2020-01-16] MEDS: BENZTROPINE MESYLATE 0.5 MG TABLET PO SCH ×2 (08:00→16:59)
[2020-01-16] MEDS: AMLODIPINE 5 MG TABLET PO SCH (08:00)
[2020-01-16] MEDS: BRIMONIDINE 0.2% OPHT DROP 10 ML BOTTLE EACHEYE SCH ×2 (08:00→16:59)
[2020-01-16] MEDS: DORZOLAMIDE 2% OPHT DROP 10 ML BOTTLE LEFTEYE SCH ×2 (08:00→20:51)
[2020-01-16] MEDS: risperiDONE 1 MG TABLET PO SCH ×5 (08:00→23:30)
[2020-01-16] MEDS: ASPIRIN 81 MG TAB.CHEW PO SCH (08:00)
--- NOTE | 2020-01-16 09:51 | NUR ---
Received patient awake in his assigned bed. Bed is in low and locked position with bilateral upper side rails raised. Patient is able to ambulate independently, and perform self care and ADL's independently. Patient is able to tolerate food and fluids. Patient is medication adherent, no adverse reaction noted. Patient denies SI/HI, denies AH/VH. Patient has grandiose and paranoid delusions. He believes that he does not belong on this unit and that he has to go back home to [place] to take [place] place [place] the [place] . Patient believes that the medication he is prescribed is not necessary for him and that he does not have medical or psychiatric issues. Patient is hyperverbal, religiously focused during conversation, and unable to maintain linear conversation with staff. Patient's mood is labile, he easily becomes angry and agitated but is redirectable. Patient requires frequent reality orientation and redirectio, requires education about impulse control and educated to communicate needs appropriately to staff. Will continue to monitor.
[2020-01-16] MEDS: ACETAMINOPHEN 325 MG TABLET PO PRN (11:11)
--- NOTE | 2020-01-16 12:01 | NUR ---
spoke with with orders for EKG and cardio consult, MD aware, will continue follow up
[2020-01-16 15:56] VITALS: BP 147/73
[2020-01-16 20:00] VITALS: BP 142/69
[2020-01-16] MEDS: DIVALPROEX SPRINKLE 125 MG CAP.SPRINK PO SCH (21:00)
--- NOTE | 2020-01-17 00:44 | NUR ---
RECEIVED PATIENT IN BED AWAKE.PLEASANT UPON APPROACH.HOWEVER BECAME ANNOYED WHEN IT WAS TIME TO TAKE HIS MEDICATION.HE SAID 'I JUST SAW THE DOCTOR AND HE DID NOT SAY I HAD TO TAKE ANY MEDICATION. EVEN IF HE DID I HAVE TAKEN MY MEDS ALREADY AND WILL NOT TAKE THIS."HE WAS HYPERVERBAL, SUSPICIOUS AND EXHIBITS GRANDIOSE DELUSIONS.DENIES SI/HI. WILL CONTINUE TO MONITOR.
--- NOTE | 2020-01-17 06:25 | NUR ---
SLEPT FOR 7;30HRS. INITIALLY NON MED COMPLIAT. BUT LATER TOOK THE RISPERDAL.
--- NOTE | 2020-01-17 07:30 | NUR ---
RECIEVED PT IN BED, AWAKE, ALERT AND ORIENTED X3. VERY COOPERATIVE. AMBULATORY WITH STEADY GAIT. NO APPARENT DISTRESS NOTED.
[2020-01-17] MEDS: risperiDONE 1 MG TABLET PO SCH ×3 (08:22→20:30)
[2020-01-17] MEDS: BRIMONIDINE 0.2% OPHT DROP 10 ML BOTTLE EACHEYE SCH ×2 (08:23→16:21)
[2020-01-17] MEDS: BENZTROPINE MESYLATE 0.5 MG TABLET PO SCH ×2 (08:24→16:20)
[2020-01-17] MEDS: ASPIRIN 81 MG TAB.CHEW PO SCH (08:24)
[2020-01-17] MEDS: DORZOLAMIDE 2% OPHT DROP 10 ML BOTTLE LEFTEYE SCH ×2 (08:24→20:36)
[2020-01-17] MEDS: AMLODIPINE 5 MG TABLET PO SCH (08:25)
[2020-01-17 08:28] VITALS: BP 145/55
[2020-01-17] MEDS: ACETAMINOPHEN 325 MG TABLET PO PRN (10:51)
--- NOTE | 2020-01-17 10:56 | NUR ---
PT C/O HEADACHE LEVEL6. DENIES OF ANY DIZZINESS. MEDICATED WITH TYLENOL 650MG PO PER PT'S REQUEST.
--- NOTE | 2020-01-17 18:53 | NUR ---
Pt is very compliant with taking his medications today.
[2020-01-17] MEDS: DIVALPROEX SPRINKLE 125 MG CAP.SPRINK PO SCH (20:30)
[2020-01-17 21:50] VITALS: BP 111/41
--- NOTE | 2020-01-18 07:20 | NUR ---
Received patient in bed sleeping easily arousable, patientAAOx3-4 engaging in conversation, at this time verbalizing been upset stating "breakfast is been served too late" no c/of any discomfort.
[2020-01-18 07:30] VITALS: BP 144/72
[2020-01-18] MEDS: DORZOLAMIDE 2% OPHT DROP 10 ML BOTTLE LEFTEYE SCH (08:27)
[2020-01-18] MEDS: BRIMONIDINE 0.2% OPHT DROP 10 ML BOTTLE EACHEYE SCH ×2 (08:27→17:00)
[2020-01-18] MEDS: AMLODIPINE 5 MG TABLET PO SCH ×2 (08:56→09:00)
[2020-01-18] MEDS: risperiDONE 1 MG TABLET PO SCH ×2 (08:56→12:15)
[2020-01-18] MEDS: BENZTROPINE MESYLATE 0.5 MG TABLET PO SCH ×2 (08:56→17:00)
[2020-01-18] MEDS: ASPIRIN 81 MG TAB.CHEW PO SCH ×2 (08:56→09:00)
--- NOTE | 2020-01-18 10:02 | NUR ---
Social Work/Discharge Note: [facility] [address] [facility] [address] ([phone]). Patient will be provided with ambulance transportation at 12pm. Spoke with marcelina Mccrary at the facility who states they are ready to accept the patient back today. Patient is aware and agreeable with discharge plans and presents with normal mood and congruent affect. Patient is alert and oriented x3, is unable to plan for self-care, however, would like to continue to receive care at the facility. Patient denies any suicidal or homicidal ideation. Patient will follow-up at the facility with Psychiatrist Dr. Arias and Internal Medicine Nurse Practitioner Dr. Plasencia. Student Recruiter faxed patients discharge packet to the facility. SW left a voicemail for patients daughterGayle ([phone]) to inform of the patients discharge plan.
--- NOTE | 2020-01-18 10:52 | NUR ---
Patient is AAOx3-4. cooperative and following directions with nursing care but been refusing blood pressure and other medications see eMAR but unable to plan for self care. At this time patient denies, any SI and HI and denies pain, sob or any other discomfort. Today pt. will be dcd to [facility] at [address] [address] ([phone]). Patient will be going via ambulance and this is been arrange by charge R.N. As per KERMIT notes [facility] in good terms to admit patient. Patient is aware and agreeable with discharge plans. Patient also agrees to continue receiving care at the facility. Patient will follow-up at the facility with Psychiatrist Dr. Arias and Enrollment Management Director Dr. Plasencia. Discharge packet faxed to facility by KERMIT. Patients daughter was also updated with message left by Gayle CARMEN ([phone]) to inform of the patients discharge plan.
--- NOTE | 2020-01-18 12:34 | NUR ---
A call to [facility] and telephone report given to Dilan Collins all questions answered nurse informed of continuity of care plan and estimated ETOA. Addendum: 01/18/20 at 1342 by MARIA ESTHER WASHBURN RN As stated by Dilan Collins patient will be going to room 09B.
--- NOTE | 2020-01-18 13:44 | NUR ---
All dcd documentation and computer interventions related to discharge done by charge Dilan Araiza.
[2020-01-18 16:00] VITALS: BP 140/67
--- NOTE | 2020-01-18 17:28 | NUR ---
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 Report given to Medical transporter Ab. valuable review with patient and envelope open with transfer personnel as witness. Patient left room via Simi joseph. vitals stable. sbp of 140/67 temp of 97.3, rr 18, 95% saturation on RA. with no c/of pain or any other complains. Patient refused 1700 medications.
== END 2020-01-18 17:30 | DRG 885 ==
LOC: ER 00:05 → GPS 04:34
PROVIDERS: ADMIT Psychiatry & Neurology Psychiatry; ATTEND Student in an Organized Health Care Education/Training Program
DX: F25.0 Schizoaffective disorder, bipolar type (principal); F01.50 Vascular dementia, unspecified severity, without behavioral disturbance, psychotic disturbance, mood disturbance, and anxiety; N17.0 Acute kidney failure with tubular necrosis; N18.9 Chronic kidney disease, unspecified; D68.59 Other primary thrombophilia; F39 Unspecified mood [affective] disorder; Z86.73 Personal history of transient ischemic attack (TIA), and cerebral infarction without residual deficits; E78.5 Hyperlipidemia, unspecified; E03.9 Hypothyroidism, unspecified; Z79.890 Hormone replacement therapy; G30.9 Alzheimer's disease, unspecified; F02.80 Dementia in other diseases classified elsewhere, unspecified severity, without behavioral disturbance, psychotic disturbance, mood disturbance, and anxiety; I12.9 Hypertensive chronic kidney disease with stage 1 through stage 4 chronic kidney disease, or unspecified chronic kidney disease; D75.89 Other specified diseases of blood and blood-forming organs; Z74.09 Other reduced mobility; E80.6 Other disorders of bilirubin metabolism
CPT/HCPCS: 36415; 80164; 80307; 83735; 84100; 84443; 85025; 93005; A4663; G0480; G0480-TC; J2060; J2358